=== PATIENT | male | born 1950 | race Two or more races ===

== ENCOUNTER → 2016-12-06 | Outpatient (CLI) | payer MEDICARE, OTHER ==
--- NOTE | 2016-12-06 12:08 | RAD ---
Left facial and jaw region ultrasound, 12/06/2016: History: Swelling The area of clinical concern along the left face and jaw line was carefully scanned. Several small lymph nodes are identified. The largest of these lies in the submandibular region and measures 8 x 5 x 6 mm. It is not considered to be pathologically enlarged. No mass or abnormal fluid collection is seen.
== END | disposition home or self-care (01) ==
LOC: US 09:05
PROVIDERS: ATTEND Nurse Practitioner Adult Health
DX: R59.9 Enlarged lymph nodes, unspecified (principal); R22.9 Localized swelling, mass and lump, unspecified
CPT/HCPCS: 76881

== ENCOUNTER → 2018-09-25 | Outpatient (CLI) | payer MEDICARE, OTHER ==
--- NOTE | 2018-09-25 11:51 | RAD ---
EXAM: Carotid Doppler sonogram. HISTORY: Hyperlipidemia. TECHNIQUE: Grover scale and color Doppler sonographic evaluation of the neck with spectral waveform analysis was performed and static images are submitted for review. FINDINGS: There is intimal thickening involving the common carotid arteries and mild atherosclerotic plaque within the carotid bifurcations. The peak systolic velocity within the right common carotid artery is 120 cm/sec. The peak systolic velocity within the right internal carotid artery is 77 cm/sec and the end diastolic velocity within the right internal carotid artery is 29 cm/sec. The right ICA/CCA ratio is 0.6. The peak systolic velocity within the left common carotid artery is 129 cm/sec. The peak systolic velocity within the left internal carotid artery is 67 cm/sec and the end diastolic velocity within the left internal carotid artery is 19 cm/sec. The left ICA/CCA ratio is 0.5. There is normal antegrade flow within both vertebral arteries. IMPRESSION: No Doppler evidence of hemodynamically significant stenosis within the carotid or vertebral arteries. PQRS Compliance Statement - Stenosis calculations for CT, MR and conventional angiography are based upon measurement of the distal ICA diameter in accordance with the NASCET methodology. Stenosis calculations for carotid ultrasound studies are derived from validated velocity criteria which are known to correlate with the NASCET methodology. Electronically signed by: Albertina Dukes MD (09/25/2018 11:47 AM) [place] [id number]
== END | disposition home or self-care (01) ==
LOC: US 09:41
PROVIDERS: ATTEND Family Medicine
DX: E78.49 Other hyperlipidemia (principal); I70.8 Atherosclerosis of other arteries
CPT/HCPCS: 93880